=== PATIENT | female | born 1970 | race Caucasian/White ===

== ENCOUNTER 2017-10-19 11:04 | Day surgery (SDC) | payer BC ==
[~2017-10-19 11:04] MED LIST: FENTANYL 100MCG/2ML SOL ONE; MIDAZOLAM 2 MG/2 ML SOL ONE; PROPOFOL 500 MG/50 ML EMU IV ONE
[2017-10-19] MEDS ORDERED: BUPIVACAINE LIPOSOME 20 ML SUS ONE (12:15)
[2017-10-19] MEDS ORDERED: ONDANSETRON HCL 4 MG/2 ML SOL ONE (12:31)
[2017-10-19] MEDS: LIDOCAINE HCL 1% MPF 30 SOL ONE ×3 (12:44→15:22)
[2017-10-19] MEDS ORDERED: CEFAZOLIN SODIUM 1 GM PDS ONE (12:50)
[2017-10-19] MEDS ORDERED: PROPOFOL 500 MG/50 ML EMU IV ONE (13:03)
[2017-10-19] MEDS ORDERED: PROPOFOL 10 MG/ML EMU IV ONE ×5 (13:46→14:59)
[2017-10-19] MEDS ORDERED: METOCLOPRAMIDE HYDROCHLORIDE 5 MG/ML SOL ONE (13:57)
[2017-10-19] MEDS ORDERED: BUPIVACAINE HCL 0.5% MPF 10 ML SOL ONE (15:20)
[2017-10-19 16:16] VITALS: TEMP 97.7
[2017-10-19 16:44] VITALS: BP 106/52; PULSE 70; RESP 14; O2SAT 95
== END 2017-10-19 17:00 | disposition home or self-care (01) ==
LOC: SURG 11:04
PROVIDERS: ATTEND Podiatrist
DX: M21.612 Bunion of left foot (principal); M20.41 Other hammer toe(s) (acquired), right foot
CPT/HCPCS: 76001; J0690; J2250; J2405; J2765; J3010; L3260; A6402; J2001; J2704